=== PATIENT | male | born 1980 | race Caucasian/White ===

== ENCOUNTER 2018-01-06 13:00 | Day surgery (SDC) | payer OTHER ==
[~2018-01-06] VITALS: Ht 180.3 cm; Wt 172.5 kg
[~2018-01-06 13:00] MED LIST: CHOL50004 PO; LIDOCAINE HCL/PF 2% 5 ML VIAL INJ ONE; LIRA3PEN INJ; PROPOFOL 1% 20 ML VIAL IVP ONE
[2018-01-06] MEDS ORDERED: SODIUM CHLORIDE 0.9% 1,000 ML IV ONE ×2 (13:19→13:30)
[2018-01-06] MEDS ORDERED: VITAD1000 PO (13:51)
== END 2018-01-06 16:05 | disposition home or self-care (01) ==
LOC: SURGERY 13:00
PROVIDERS: ATTEND Internal Medicine Gastroenterology
DX: K29.30 Chronic superficial gastritis without bleeding (principal); B96.89 Other specified bacterial agents as the cause of diseases classified elsewhere; I10 Essential (primary) hypertension; F41.8 Other specified anxiety disorders; E78.5 Hyperlipidemia, unspecified; E66.01 Morbid (severe) obesity due to excess calories; E55.9 Vitamin D deficiency, unspecified; Z68.43 Body mass index [BMI] 50.0-59.9, adult; Z98.890 Other specified postprocedural states; Z79.899 Other long term (current) drug therapy; Z82.3 Family history of stroke; Z83.3 Family history of diabetes mellitus
CPT/HCPCS: 43239; 88305; 88312; J2704; J3490; J7030